=== PATIENT | female | born 1945 | race Caucasian/White ===

== ENCOUNTER 2019-11-07 18:16 | Inpatient (IN) | payer OTHER ==
[2019-11-07] MEDS ORDERED: ENOXAPARIN 40 MG/0.4 ML SQ ONE (19:17)
[2019-11-07 19:59] VITALS: BMI 24.9
--- NOTE | 2019-11-07 20:35 | RAD REPORT ---
EXAM DESCRIPTION: USCarotid Artery Bilateral11/07/2019 8:11 pm CLINICAL HISTORY: CVA COMPARISON: None FINDINGS: The velocity of the right internal carotid artery equals 100 cm/sec. The right ICA/CCA rat io 1. The velocity of the left internal carotid artery equals 166 cm/sec. The left ICA/CCA ratio 2. Mild plaque is present within the carotid arteries. Left internal carotid artery is tortuous The vertebral arteries demonstrate antegrade flow IMPRESSION: Mild plaque within the carotid arteries. Elevated velocity of the left internal carotid artery likely is secondary to it being tortuous NASCET criteria used. Mild 0-49% stenosis Moderate 50-69% stenosis Severe 70-99% stenosis
[2019-11-07] MEDS: NA CHLORIDE 0.9% 1,000 ML IV SCH (21:02)
[2019-11-08 05:21] LABS: Potassium 3.8 mmol/L (3.5-5.1)
[2019-11-08] MEDS ORDERED: POTASSIUM 25 MEQ EFFERV TAB PO ONE (06:25)
--- NOTE | 2019-11-08 08:31 | HP ---
Date of Admission: 11/07/2019 Reason For Admission: Stroke. History Of Present Illness: This is a 74-year-old very pleasant female patient who came into office yesterday with her and was diagnosed as having TIA after I interviewed and examined. Patient reported that for the past week on Wednesday, she was doing her makeup and she was reaching to strip picker something using her left hand and all of a sudden she started to have some tingling, numbness of the left hand, which radiated all the way to her left upper arm and then left side of the face and on the corner of her lip and left side of tongue was numb for a while. Entire episode lasted for about 10 minutes. She did not have any vision problem, did not have any speech problem. No headache. After these symptoms resolved, she has not had any recurrence of symptoms. She decided to go to the emergency room when symptoms started, but as her symptoms resolved within 10 minutes, she did not go to the emergency room. She came in to see me yesterday with her . After I evaluated her, I noted that there was no neurological deficit and we decided to pursue outpatient workup with what appeared to be TIA. Workup included fasting blood work that was done this morning and CAT scan of the head that was done without contrast and this was done in [facility] as yesterday patient's insurance company informed office staff that our hospital was out of network, so CAT scan was done at [facility], and today, radiologist from [place] called and informed CAT scan showed approximately 2 cm x 2.3 cm area of hypodensity in the right frontal lobe. There was no evidence of any hemorrhage, but there could be small possibility of vasogenic edema. As soon as this CAT scan report was notified by radiologist, we contacted the patient and asked her to come to office. Patient and her both came and result was discussed with them and I suggested for patient to be admitted to the hospital for further evaluation and management of this problem. Patient does not have any neurological deficit. After I saw her yesterday, we started her on aspirin 81 mg daily, lisinopril 5 mg daily, atorvastatin 40 mg daily, folic acid 1 mg daily and she has started all these medications as prescribed yesterday. Allergies: SHE IS ALLERGIC TO CODEINE CAUSING NAUSEA, VOMITING AND BACTRIM CAUSES RASH AND ITCHING. Medications: Aspirin 81 mg daily, lisinopril 5 mg daily, atorvastatin 40 mg daily, folic acid 1 mg daily. Review of Systems: MICROBIOLOGY ANALYST as mentioned above. All other systems reviewed and negative. Past Medical History: Significant for multinodular goiter, hyperlipidemia, diverticulosis, leukocytopenia. 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 Family History: Father with lung cancer and emphysema. Mother with coronary artery disease. Siblings alive and well. Social History: Negative for smoking, alcohol use. Physical Examination: Vital Signs: Upon admission today, temperature 97.3, pulse 68, respiratory rate 16, blood pressure 116/53. Height 5 feet 1 inch, weight 131 pounds. General: Awake, alert, oriented, not in distress. HEENT: Head atraumatic, normocephalic. Conjunctivae nonerythematous. Sclerae white. Mouth, no thrush or edema noted. Ears/Nose, no mass, lesion, discharge noted. Neck: Supple. No JVD, lymph nodes, bruit, thyromegaly noted. Lungs: Bilateral good equal air entry. Clear to auscultation. No rhonchi. No rales. Heart: Normal heart sounds, no murmur or gallop. Abdomen: Soft, bowel sounds normal. No guarding, rigidity, tenderness, mass, hepatosplenomegaly, distention, or bruit noted. Extremities: No leg edema. No calf tenderness. Skin: No rash, ulcer, cellulitis. Lymphatics: No lymph node enlargement in neck, supraclavicular, infraclavicular region. Neuro: No focal neurological deficit. Chest: Unremarkable. External Genitalia: Deferred. Rectal: Deferred. Laboratory Data: CAT scan of the brain done at outside hospital shows 2 cm x 2.3 cm vague area of hypodensity in the right frontal lobe with some vasogenic edema. No evidence of any hemorrhage, this was a verbal report from radiologist. Labs done this morning through [facility], WBC 3.9, hemoglobin 12.8, platelets 244. Sodium 141, potassium 4.2, chloride 104, bicarb 30, glucose 102 , BUN 20, creatinine 0.75. Liver function tests normal. Total cholesterol 231 , triglyceride 43, HDL 73, LDL 145. Impression: 1. Stroke. 2. Hyperlipidemia. 3. Multinodular goiter. 4. Diverticulosis. 5. Leukocytopenia. Plan: Admit patient to hospital for further evaluation and management of this problem. Patient is appropriate for inpatient and is expected to spend 2 midnights in the hospital. She does not have any neurological deficit. We will go ahead and order DVT prophylaxis using Lovenox. Home medications will be continued using home supply and carotid Doppler was done today after admission to the hospital shows no evidence of hemodynamically significant stenotic lesion. Tomorrow, we will get MRI of the brain done per stroke protocol. Echocardiogram will be done and we will consult neurologist. Depending on MRI results, we will discuss further plan. Details and plan of treatment discussed with the patient. JOSE/SANDRA Voice ID: [id number]
[2019-11-08] MEDS ORDERED: LISINOPRIL 5 MG PO SCH (09:00)
[2019-11-08] MEDS ORDERED: FOLIC ACID 1 MG PO SCH (09:00)
[2019-11-08] MEDS ORDERED: HOME MED 1 EA UNK (Aspirin Chewable [Aspirin Chewable*] 81 MG) PO SCH (09:00)
[2019-11-08] MEDS ORDERED: ASCORBIC ACID 250 MG PO SCH (09:00)
--- NOTE | 2019-11-08 11:21 | ECHO ---
HEIGHT: 5 ft 1 in WEIGHT: 131 lb 14.4 oz DATE OF STUDY: 11/08/[address]: Lambert Lea MD 2-DIMENSIONAL: YES M.MODE: YES DOPPLER: YES COLOR FLOW: YES TDS: NO PORTABLE: NO DEFINITY: NO BUBBLE STUDY: NO DIAGNOSIS: STROKE CARDIAC HISTORY: CATHERIZATION: NO SURGERY: NO PROSTHETIC VALVE: NO PACEMAKER: NO MEASUREMENTS (cm) DIASTOLIC (NORMALS) SYSTOLIC (NORMALS) IVSd 0.7 (0.6-1.2) LA Diam 3.4 (1.9-4.0) LVEF 69% LVIDd 4.2 (3.5-5.7) LVIDs 2.6 (2.0-3.5) %FS 38% LVPWd 0.8 (0.6-1.2) Ao Diam 2.6 (2.0-3.7) 2 DIMENSIONAL ASSESSMENT: RIGHT ATRIUM: NORMAL LEFT ATRIUM: NORMAL RIGHT VENTRICLE: NORMAL LEFT VENTRICLE: NORMAL TRICUSPID VALVE: NORMAL MITRAL VALVE: NORMAL PULMONIC VALVE: NORMAL AORTIC VALVE: NORMAL PERICARDIAL EFFUSION: NONE AORTIC ROOT: NORMAL LEFT VENTRICULAR WALL MOTION: NORMAL. DOPPLER/COLOR FLOW: MILD TRICUSPID REGURGITATION. NORMAL RIGHT VENTRICULAR SYSTOLIC PRESSURE. COMMENTS: NORMAL 2D ECHO. MILD TRICUSPID REGURGITATION. TECHNOLOGIST: RACHELLE HUGO
--- NOTE | 2019-11-08 12:22 | RAD REPORT ---
EXAM DESCRIPTION: MRI - Brain W/Wo Cont - 11/08/2019 11:52 am CLINICAL HISTORY: NUMBNESS/CVA COMPARISON: [address] TECHNIQUE: Axial, sagittal, and coronal magnetic images of the brain were obtained. 20 cc MultiHance administered intravenously FINDINGS: 3 centimeter area of heterogeneous signal is present within the right frontal lobe. It con tains areas of high and low signal on T2 weighted sequences. No enhancement is noted. On T2 weighted sequences several sulci within the right frontal lobe have low signal. The ventricles are normal in caliber. Diffusion-weighted/ ADC mapping sequences do not demonstrate evidence of an acute infarction. No abnormal enhancement within the brain is seen. An extra-axial fluid collection is not noted. Fluid within the sinuses/mastoids is not seen IMPRESSION: 3 centimeter area of heterogeneous signal within the right frontal lobe most likely repr esenting an old bleed Low signal on T2 weighted sequences within several sulci within the right frontal lobe is of uncertai n significance. . It is recommended that the patient have a CT scan of the head with and without contrast for further e valuation
--- NOTE | 2019-11-08 12:26 | RAD REPORT ---
EXAM DESCRIPTION: MRI - MRA Neck W/Wo Cont - 11/08/2019 11:52 am CLINICAL HISTORY: Numbness/CVA COMPARISON: None. TECHNIQUE: Magnetic resonance angiogram of the neck was performed. 19 cc MultiHance was administered intravenously. 3D MIPS reconstruction performed FINDINGS: The common carotid, internal carotid and external carotid arteries do not demonstrate a si gnificant stenosis. An aneurysm is not seen. Mild plaque is present within the carotid arteries The vertebral arteries are codominant without visualization of an abnormality. IMPRESSION: Mild plaque within the carotid arteries not considered significant NASCET criteria used. Mild 0-49% stenosis Moderate 50-69% stenosis Severe 70-99% stenosis
--- NOTE | 2019-11-08 12:31 | RAD REPORT ---
EXAM DESCRIPTION: MRI - MRA Head Wo Cont - 11/08/2019 11:53 am CLINICAL HISTORY: Numbness/CVA COMPARISON: None. TECHNIQUE: Magnetic resonance angiogram was performed. 3D MIPS reconstruction performed FINDINGS: The anterior cerebral, middle cerebral, posterior cerebral, distal internal carotid and ba silar arteries do not demonstrate a significant stenosis. An aneurysm is not displayed. IMPRESSION: Unremarkable MRA brain.
--- NOTE | 2019-11-08 13:12 | RAD REPORT ---
EXAM DESCRIPTION: CT - Head Brain W/Wo Con - 11/08/2019 12:52 pm CLINICAL HISTORY: CVA COMPARISON: MRI brain on the same date TECHNIQUE: Computed axial tomography of the head was obtained. Unenhanced and enhanced images obtain ed. 50 cc Isovue-[address] scans are performed using dose optimization technique as appropriate and may include automated exposure control or mA/KV adjustment according to patient size. FINDINGS: 3 centimeter low density area right frontal lobe. Right frontal lobe sulci are not well vi sualized. The ventricles are normal in caliber. No extra-axial fluid collection is noted. No abnormal enhancement seen Fluid within the sinuses/ mastoids is not seen. IMPRESSION: Given the CT/MRI findings the patient most likely has had either an old hemorrhagic infa rct or old bleed within the right frontal lobe. There also appears to be a small old subarachnoid com ponent
--- NOTE | 2019-11-08 15:48 | EKG ---
Test Date: 2019-11-08 Test Time: 12:34:21 Upholsterer Apprentice: PERLA MEASUREMENT RESULTS: Intervals: Rate: 60 ND: 152 QRSD: 78 QT: 432 QTc: 432 [place]: P: 70 ND: 152 QRS: 77 T: 87 INTERPRETIVE STATEMENTS: Normal sinus rhythm Normal ECG Compared to ECG 05/22/2006 07:23:00 Ventricular premature complex(es) no longer present Electronically Signed On 11-08-19 15:48:21 HEALTHCARE MANAGEMENT by Moses Puga
[2019-11-08] MEDS: NA CHLORIDE 0.9% 1,000 ML IV SCH (16:00)
[2019-11-08] MEDS ORDERED: ENOXAPARIN 40 MG/0.4 ML SQ SCH (17:00)
[2019-11-08] MEDS ORDERED: ATORVASTATIN CALCIUM 40 MG PO SCH (21:00)
[2019-11-08 21:33] VITALS: BP 111/47; TEMP 97
[2019-11-08 22:50] VITALS: O2SAT 96
--- NOTE | 2019-11-09 00:01 | PN ---
Date of Progress Note: 11/08/2019 Subjective: Patient was seen this morning for followup. She was lying in bed not in distress. Her was with her at bedside. No new complaints or problems reported by her. No neurological com plaints. Objective: Vital Signs: Reviewed. HEENT: Unremarkable. Lungs: Clear to auscultation. Heart: Sounds normal. Abdomen: Soft. Bowel sounds normal. No guarding, rigidity, tenderness, or distention. Extremities: No leg edema. Neurological: No focal neurological deficits. Laboratory Data: MRI of the brain done today and radiologist called me with the results and he recom mended CAT scan of the brain with contrast, which was also done stat and radiologist called me with t hat results as well and I have communicated those results to her and her . Impression: 1.Stroke. 2.Hyperlipidemia. Plan: After MRI and CAT scan result became available, we are concerned about approximately 3 cm area of abnormality in the right frontal lobe and according to radiologist, this does not appear to be an y brain tumor, but what it appears to be is likely old stroke with some evidence of old blood in it a nd it does not appear few days old as if it might have happened last week, but it appears a few weeks old as best as the radiologist can explain it to me. There is also some subdural component with thi s and I did communicate with our neurologist and recommendation now is the patient to go to [facility] or higher level of care, as she may need cerebral angiogram and further intervention depending on wha t further testing will reveal and we are not able to provide that care at our facility. All these de tails were discussed with the patient and her and transfer process was initiated. I did comm unicate with hospitalist and neurologist at [facility] in [place] and the patient was accepted by physician and hospital and we are waiting for now bed availability. As soon as bed becom es available, patient will be transferred via ground ambulance and the patient is medically stable fo r transfer. Details were discussed with the patient and her . Soon after I got this MRI resu lt and CAT scan result, a nurse was informed to discontinue aspirin and Lovenox. The patient took as pirin on Wednesday and Wednesday, which is yesterday and day before yesterday, and has not received any as pirin today. She took 1 dose of Lovenox yesterday per order and has not taken any Lovenox today. JOSE/MODL Voice ID: [id number] Report ID: [id number]
--- NOTE | 2019-11-10 00:29 | DS ---
Date of Discharge: 11/08/2019 Disposition: Transfer to [facility] via ground ambulance. Discharge Diagnoses: 1.Stroke. 2.Hypertension. 3.Hyperlipidemia. Discharge Medications: Continue current medications. Physical Examination: See copy of today's progress note for details. Hospital Course: This is a 74-year-old very pleasant female patient, admitted to the hospital with s troke problem. Please see dictated H and P for more information. After patient was evaluated at the office and CAT scan results discussed, she was admitted to the hospital. She did not have any neuro logical deficit at all. Today, on day of discharge, she had MRI done per stroke protocol and as per recommendation from the radiologist she also had a CAT scan of the head and brain done with contrast. All these results were reviewed with the patient and the patient's and also I have discusse d details with our neurologist and it was recommended that we need to go ahead and send her to [facility] for higher level of care considering abnormality noted on the CAT scan and MRI. I did talk to neur ologist and hospitalist at [facility] after the patient was accepted and once arrangements co mpleted, she was transferred via ground ambulance in stable condition. JOSE/MODL Voice ID: [id number] Report ID: [id number]
== END 2019-11-08 22:46 | disposition short-term general hospital (02) | DRG 66 ==
LOC: 4TH 18:16
PROVIDERS: ADMIT Internal Medicine; ATTEND Internal Medicine
DX: I63.9 Cerebral infarction, unspecified (principal); I10 Essential (primary) hypertension; E78.5 Hyperlipidemia, unspecified; E04.2 Nontoxic multinodular goiter; K57.90 Diverticulosis of intestine, part unspecified, without perforation or abscess without bleeding; D72.819 Decreased white blood cell count, unspecified
CPT/HCPCS: 36415; 70544; 70549; 70553; 80048; 93005; 93306; 93880; A9577; J1650; J7030

== ENCOUNTER 2021-05-13 08:38 | Inpatient (IN) | payer OTHER ==
--- OUTSIDE RECORDS SUMMARY | 2021-05-13 08:43 | XMS REPORT | Continuity of Care Document ---
:1945 Author Organization [facility] t Address [address] [place] [place] [address] Care Team Providers Name Role Phone Chely Lea MD Primary Care Physician Gigi Pierce Attending Clinician Natividad CARVALHO Attending Clinician Kojo De La Fuente RN Attending Clinician Unavailable Dov YEE Attending Clinician Unavailable RONNIE SUAREZ Attending Clinician Unavailable Mendy ROSE Admitting Clinician Unavailable Payers Payer Name Policy Type Policy Number Effective Date Expiration Date S ource Problems Condition Condition Condition Status Onset Resolution Last Treating Co mments Source Name Details Category Date Date Treatment Clinician Date TIA TIA Disease Active [facility] (transient [facility]-05 Gianna kes - ischemic ischemic 00:00: Medica l attack) attack) 00 Center Thyroid Thyroid Disease Active 2015-09 [facility] nodule nodule 2-07 st 00:00: Hospita 00 l Cerebral Problem Active 2021-02-28 Mem oria hemorrhage 02:04:38 l (disorder) Cerebral He rmann hemorrhage (disorder) Active Problem 02/28/2021 [facility] Hemorrhage Problem Active 2021-02-28 M emoria into 02:04:38 l subarachno Tee n id space Hemorrhage of into neuraxis subarachno (disorder) id space of neuraxis (disorder) Active Problem 02/28/2021 [facility] Allergies, Adverse Reactions, Alerts Allergy Allergy Status Severity Reaction(s) Onset Inactive Treating Comm ents Source Name Type Date Date Clinician Sulfamet Propensi Active Rash [facility] -[facility] adverse 00:[facility]: Medical oprim reaction 00 Center s Codeine Propensi Active Nausea And [facility] Vomiting 3[facility]05 [facility] - adverse 00:[facility]: Medical reaction 00 Center s Sulfamet Propensi Active 2016-09 [facility] i hoxazole ty to 10-04 [facility] -[facility] adverse 00:00: Hospita oprim reaction 00 l s to drug Codeine Propensi Active 2015-09 [facility] ty to 10-13 st adverse 00:00: Hospita reaction 00 l s to drug codeine codeine Active [facility] [place] Bactrim Bactrim Active [facility] [place] Family History Family Member Diagnosis Comments Start Date Stop Date Source Natural father COPD [facility] Natural father Liver disease [facility] Natural mother Heart disease [facility] Natural mother Mental illness [facility] Social History Social Habit Start Date Stop Date Quantity Comments Source History SDOH [facility] Binge Medical [facility] History [facility] Std Drinks [facility] Tobacco use and 2020-07-19 2020-07-19 Never used [facility] exposure 00:00:00 00:00:00 Hospital Alcohol intake 2019-11-09 2019-11-09 Current [facility] - 00:00:00 00:00:00 non-drinker of Medical Ce nter alcohol (finding) History SDOH 2019-11-09 2019-11-[address] [facility] - Alcohol Frequency 00:00:00 00:00:00 [facility] Sex Assigned At [birth year] [facility] 00:[facility]:00 00:00:00 Hospital Smoking Status Start Date Stop Date Source Never smoker [facility] Medications Ordered Filled Start Stop Current Ordering Indication Dosage Frequency Signature Comments Components Source Medication Medication Date Date Medication? Clinician (SIG) Name Name Crestor 2019-09 Yes PO, Daily, Stefan eunice 2-22 0 l 20:46: Refill(s) Alex 00 rosuvastati 2019-09 Yes 5mg QD Take 5 mg M ethodi n (CRESTOR) [address] 5 mg tablet 16:29: daily. Hosp shahid 50 l hyoscyamine 2019-09 Yes Take by Met hodi sulfate 1-[address] 0.125 mg 16:29: needed. Hospit a tablet,disi 50 l ntegrating guaifenesin 2019-09 Yes Take by Met hodi (MUCINEX 1-[address] ORAL) 16:29: needed. Hospita 50 l vitamin B 2019- Yes QD Take by Metho di complex (B 1-[address] COMPLEX 16:29: daily. Hospita ORAL) 50 l ascorbic 2019- Yes 250mg Q.5D Take 250 Meth rosalie acid 1-[address] (VITAMIN C 16:29: mouth 2 Hosp shahid ORAL) 50 (two) l times a day. cyanocobala 2019- Yes 500ug QD Take 500 M ethodi min 500 MCG 1-[address] tablet 18:10: mouth Hospita 09 daily. l cholecalcif 2019- Yes 1000U QD Take 1,000 Methodi mckenna, 1-[address] vitamin D3, 18:10: mouth Hospi ta (VITAMIN 09 daily. l D3) 1,000 unit capsule atorvastati 2019-0 Yes 40 mg, PO, Memoria n -29 Daily, 0 l 14:41: Refill(s) [place] 00 Folic Acid 2019-0 Yes 1 mg, PO, Me moria - Daily, 0 l 14:41: Refill(s) azelastine 2019-0 Yes 2 sprays, Me moria - NASAL, l 14:41: BID, 0 Laex 00 Refill(s) fluticasone 2019-0 Yes = 1 spray, Memoria propionate - NASAL, l 14:41: BID, 0 [place] 00 Refill(s) Hyoscyamine 2020-0 Yes 0.125 mg, M emoria 5-29 PO, PRN, 0 l 14:41: Refill(s) folic acid 2019-0 Yes [facility] (FOLVITE) 1 3-11 st MG tablet 00:00: Hospita 00 l atorvastati 2020-0 2020- No Metho di n (LIPITOR) 3-11 11-10 st 40 MG 00:00: 00:00 Hospita tablet 00 :00 l atorvastati 2019-0 Yes 40mg QD Take [address] [facility] (LIPITOR) 3-06 by mouth [facility] s - 40 MG 13:08: daily. Medical tablet 05 Center folic acid Yes 1mg QD Take [address] (FOLVITE) 1 11-09 by mouth Luke s - MG tablet 13:08: daily. Medica l 05 Center azelastine Yes [facility] (ASTELIN) - st 137 mcg 00:00: Hospita (0.1 %) 00 l nasal spray fluticasone Yes Method i propionate 11-03 st (FLONASE) 00:00: Hospita 50 00 l mcg/actuati on nasal spray turmeric, 2016-09 Yes 09/13 tsp Metho di bulk, 95 % 10-[address] powder 00:00: Hospita 00 l omega-3 2016-09 Yes 1200 mg [facility] fatty 10-[address] acids-fish 00:00: Hospita oil (FISH 00 l OIL) 300-1,000 mg capsule Lactobacill 2016-09 Yes 1 a day Met hodi us 10-04 st acidophilus 00:00: Hospit a (PROBIOTIC) 00 l 10 billion cell capsule cranberry 2016-09 Yes 1 a day Metho di 500 mg 10-04 st capsule 00:00: Hospita 00 l lecithin 2016-09 Yes 380 mg a Metho di 518 mg - day st capsule 00:00: Hospita 00 l magnesium 2016-09 Yes 200 mg a Meth rosalie citrate 100 10-[address] mg tablet 00:00: Hospita 00 l vit 2016-09 Yes 1 a day [facility] C,E-Zn-kurt 10-04 st r-lutein-ze 00:00: Hospit a axan 00 l (PRESERVISI ON AREDS 2) 250-200-40- 1 mg-unit-mg- mg capsule Vital Signs Vital Name Observation Time Observation Value Comments Source Systolic blood 2020-07-19 21:39:00 161 mm[Hg] [facility] Hospital pressure Diastolic blood 2020-07-19 21:39:00 65 mm[Hg] [facility] pressure Heart rate 2020-07-19 21:39:00 63 /min [facility] Respiratory rate 2020-07-19 21:39:00 16 /min [facility] Oxygen saturation in 2020-07-19 21:39:00 98 /min [facility] Arterial blood by Pulse oximetry Body height 2020-07-17 16:29:00 154.9 cm [facility] Body weight 2020-07-17 16:29:00 57.063 kg [facility] BMI 2020-07-17 16:29:00 23.77 kg/m2 [facility] Systolic (mm Hg) 2020-05-31 14:49:00 Stefan rial Alex Diastolic (mm Hg) 2020-05-31 14:49:00 Mem orial [place] Heart Rate 2020-05-31 14:49:00 [facility] [place] Respitory Rate 2020-05-31 14:49:00 [facility] al [place] Height 2020-05-31 14:49:00 152.4 cm [facility] Weight 2020-05-31 14:49:00 [facility] [place] BMI Calculated 2020-05-31 14:49:00 [facility] [place] Systolic (mm Hg) 2020-02-29 14:20:00 Stefan rial [place] Diastolic (mm Hg) 2020-02-29 14:20:00 Mem orial [place] Heart Rate 2020-02-29 14:20:00 [facility] Respitory Rate 2020-02-29 14:20:00 [facility] [place] Temperature Oral (F) 2020-02-29 14:20:00 97.2 F [facility] [place] Height 2020-02-29 14:20:00 154.94 cm [facility] Weight 2020-02-29 14:20:00 [facility] [place] BMI Calculated 2020-02-29 14:20:00 [facility] [place] Weight 2020-02-02 14:35:00 [facility] [place] BMI Calculated 2020-02-02 14:35:00 Memori al Alex Systolic (mm Hg) 2020-02-02 14:35:00 Stefan rial Alex Diastolic (mm Hg) 2020-02-02 14:35:00 Mem orial Alex Heart Rate 2020-02-02 14:35:00 [facility] [place] Respitory Rate 2020-02-02 14:35:00 [facility] [place] Temperature Oral (F) 2020-02-02 14:35:00 97.6 F [facility] Height 2020-02-02 14:35:00 154.94 cm [facility] Procedures Procedure Date / Time Performed Performing Clinician Sourc e US THYROID BIOPSY FNA 2020-07-19 21:54:38 Robert Potts [facility] CYTOLOGY 2020-07-18 20:45:00 Robert Potts [facility] (NON-GYNECOLOGICAL) REQUEST US THYROID 2020-07-09 16:37:09 Robert Potts [facility] Plan of Care Planned Activity Planned Date Details Comments Source Future Scheduled 2020-05-07 INFLUENZA VACCINE (#1) [facility]00 [code = INFLUENZA Medical Ce nter VACCINE (#1)] Future Scheduled 2019-09-06 Medicare IPPE (WELCOME [facility] 00:[facility]00 TO MEDICARE) [code = Medical Center Medicare IPPE (WELCOME TO MEDICARE)] Future Scheduled 2012 PNEUMOCOCCAL 65+ [facility] - Test 00:00:00 (1 of 1 - Medical Center [id number] PCV13) [code = PNEUMOCOCCAL 65+ YRS (1 of 1 - [id number] PCV13)] Future Scheduled [address] [facility] malignant neoplasm of Med[facility] Center breast (procedure) [code = 688951011] Future Scheduled [address] [facility] malignant neoplasm of Medica [facility] Center colon (procedure) [code = 669330839] Future Scheduled COVID-19 [facility]ACCINE (1) [facility] [code = COVID-19 VACCINE (1)] Future Scheduled [facility] (procedure) [code = 618327464] Future Scheduled BREAST CANCER [facility] Test SCREENING [code = BREAST CANCER SCREENING] Future Scheduled SHINGLES VACCINES (#1) [facility] Test [code = SHINGLES VACCINES (#1)] Future Scheduled 65+ [facility]OCOCCAL [facility] Test VACCINE (1 of 1 - PPSV23) [code = 65+ PNEUMOCOCCAL VACCINE (1 of 1 - PPSV23)] Future Scheduled INFLUENZA VACCINE [facility] Test [code = INFLUENZA VACCINE] Future Scheduled COLONOSCOPY SCREENING [facility] [code = COLONOSCOPY SCREENING] Encounters Start End Encounter Admission Attending Care Care Encounter Source Date/Time Date/Time Type Type Clinicians Facility Department ID 2021-02-25 2021-02-26 Outpatient nullFlavo MNA [id number] Memoria 18:45:00 04:59:59 r Neurology 13 l Valdez Johnson 2021-02-25 2021-02-25 [id number] 13:45:00 23:59:59 Jose 13 Gigi 2021-02-25 2021-02-25 Outpatient MHIE MHIE [id number] Memoria 13:45:00 13:45:00 13 cheyenne Johnson 2020-08-27 2020-08-28 Outpatient nullFlavo MNA [id number] Memoria 20:45:00 05:59:59 r Neurology 12 l Valdez Johnson 2020-08-27 2020-08-27 Outpatient ANDRE PierceSCHER [facility]CHER [id number] 14:45:00 23:59:59 Jose 12 Gigi 2020-08-27 2020-08-27 Outpatient MHIE MHIE [id number] Memoria 14:45:00 14:45:00 12 [facility] 2020-07-19 2020-07-19 [facility] 1.2.840.1 [id number] Methodi 14:08:11 23:59:00 Encounter Jawairia 85899.1.1 221 s t 3.430.2.7 Hospit a .3.274532 l .8 2020-07-19 2020-07-19 Travel 1.2.840.1 1.2.836.551 [id number] Methodi 00:00:00 00:00:[address] 3.430.2.7 0.2.7.3.698 Ho spita .3.462040 084.8 l .8 2020-07-19 2020-07-19 Outpatient [facility] [id number] [place] 00:00:00 00:00:00 [address] 2020-07-18 2020-07-18 Telephone Del[place] 1.2.840.1 [id number] Methodi 00:00:00 00:00:00 Sudhakar, 32939.1.[address] Shannan 3.430.2.7 Hospit a .3.357729 l .8 2020-07-17 2020-07-17 Office Natividad, 1.2.840.1 [id number] Methodi 10:21:39 16:10:54 Visit Jawairia [address]1054.1.[address] 3.430.2.7 Hospit a .3.996147 l .8 2020-07-17 2020-07-17 Documentat Dov, 1.2.840.1 [id number] Methodi 00:00:00 00:00:00 ion [place] 20152.1.[address] 3.430.2.7 Hospit a .3.340168 l .8 2020-07-17 2020-07-17 Travel 1.2.840.1 1.2.157.820 [id number] Methodi 00:00:00 00:00:[address] 3.430.2.7 0.2.7.3.698 Ho spita .3.001954 084.8 l .8 2020-07-17 2020-07-17 Outpatient [facility] [id number] [place] 00:00:00 00:00:[address] JA[address] 2020-07-09 2020-07-09 Travel 1.2.840.1 1.2.770.013 [id number] Methodi 00:00:00 00:00:[address] 3.430.2.7 0.2.7.3.698 Ho spita .3.714126 084.8 l .8 2020-07-09 2020-07-09 Outpatient [facility] [id number] [place] 00:00:00 00:00:00 JAWAIRIA [address] 2020-05-31 2020-06-01 Outpatient nullFlavo MNA [id number] Memoria 14:45:00 04:59:59 r Neurology 11 l Tecumseh Alex 2020-05-31 2020-05-31 [facility] [id number] 09:45:00 23:59:59 Jose 11 Gigi 2020-05-31 2020-05-31 Outpatient MHIE MHIE [id number] Memoria 09:45:00 09:45:00 11 l Alex 2020-02-29 2020-03-01 Outpatient nullFlavo MNA [id number] Memoria 14:30:00 04:59:59 r Neurology 09 l Tecumseh Alex 2020-02-29 2020-02-29 [facility] [id number] 09:30:00 23:59:59 Jose 09 Gigi 2020-02-29 2020-02-29 Outpatient MHIE MHIE [id number] Memoria 09:30:00 09:30:00 09 cheyenne Alex 2020-02-08 2020-02-09 Outpatient nullFlavo MNA [id number] Memoria 18:00:00 04:59:59 r Neurology 10 l Valdez Johnson 2020-02-08 2020-02-08 Outpatient CAREN Pierce [id number] [id number] 13:00:00 23:59:59 Jose 10 Gigi 2020-02-08 2020-02-08 Outpatient MHIE MHIE [id number] Memoria 13:00:00 13:00:00 10 cheyenne [place] 2020-02-02 2020-02-03 Outpatient nullFlavo MNA [id number] Memoria 14:45:00 04:59:59 r Neurology 08 l Valdez [place] 2020-02-02 2020-02-02 Outpatient CAREN Pierce BEENASCHFABIENNE [id number] 09:45:00 23:59:59 Jose 08 Gigi 2020-02-02 2020-02-02 Outpatient MHIE MHIE [id number] Memoria 09:45:00 09:45:00 08 cheyenne Johnson 2019-12-06 2019-12-06 Outpatient NATIVIDAD [facility] [id number] [place] 00:00:00 00:00:[address] Results Test Description Test Time Test Comments Results Result Comments Source Cytology (non-gynecological) request 2020-07-22 22:11:54 Test Item Value Reference Range Interpretation Comme nts Case number (test code = [id number]) [id number] Cytology (non-gynecological) report (test See link below for PDF La b Report code = 1178) Result status (test code = 9487314) This is Final Report for [id number] [facility] [id number] 22:09:32EXAMINATION: US THYROID BIOPSY FNA CLINICAL HISTORY: E04.1 Nontoxic single thyroid nodule, thyroidnodule COMPARISON: Ultrasound dated 07/09/2020 NODULES BIOPSIED:Right 4 cm thyroid nodule The procedure was discussed with the patient and verbal consent was obtained. The nodule was localized using ultrasonography. A site for needle entry was selected and the skin was prepped and draped in the usual sterile fashion. After local administration of 1% buffered lidocaine, serial 25- gauge fine-needle aspirations were obtained using ultrasound guidance. The specimens were reviewed with the pathologist and were deemed adequate. The patient tolerated the procedure without difficulty and was discharged home in satisfactory condition. The patient has been instructed to follow-up with the ordering physician for the results of the biopsy. EBL: None. IMPRESSION: 1.Successful ultrasound-guided thyroid biopsy. [facility], Radiology Results Incoming - 07/19/2020 4:12 PM CSTFormatting of this note mightbe different from the original.EXAMINATION: US THYROID BIOPSY FNACLINICAL HISTORY: E04.1 Nontoxic single thyroid nodule, thyroid nodule COMPARISON: Ultrasound dated 07/09/2020NODULES BIOPSIED:Right 4 cm thyroid noduleThe procedure was discussed with the patient and verbal consent was obtained. The nodule was localized using ultrasonography. A site for needle entry was selected and the skin was prepped and draped in the usual sterile fashion. After local administration of 1% buffered lidocaine, serial 25-gauge fine-needle aspirations were obtained using ultrasound guidance. The specimens were reviewed with the pathologist and were deemed adequate. The patient tolerated the procedure without difficulty and was discharged home in satisfactory condition. The patient has been instructed to follow-up with the ordering physician for the results of the biopsy.EBL: None.IMPRESSION:1.Successful ultrasound-guided thyroid biopsy.[facility] MR, MRA, BRAIN, WITHOUT [id number] 02:48:00Please obtain MRV with contrast. Arterial view already completed at [facility] EXAM: MR, MRA, BRAIN, WITHOUT CONTRAST CLINICAL INDICATION: Frontal hemorrhage. TECHNIQUE: 3D lksg-lm-tntnat MRA and MRV of the head with maximum intensity projections (MIPs). COMPARISON: 11/09/2019 MRI. FINDINGS: Anterior Circulation:Right intracranial internal carotid artery (ICA): NormalRight anterior cerebral artery (JOSE): NormalRight middle cerebral artery ( MCA): Normal Left intracranial internal carotid artery (ICA): NormalLeft anterior cerebral artery (JOES): NormalLeft middle cerebral artery (MCA): Normal Anterior communicating artery (AComm): PresentPosterior communicating arteries (PComm): Not well-visualized bilaterally. Posterior Circulation:Right posterior cerebral artery (CASING WRINGER OPERATOR): NormalLeft posterior cerebral artery (CASING WRINGER OPERATOR): Normal Right vertebral artery (VA): NormalLeft vertebral artery (VA): NormalBasilar artery (BA): Normal Major Dural Venous Sinuses and Cortical Veins: Normal flow related signal to include the bilateral transverse sinuses, sigmoid sinuses, partially imaged internal jugular veins, sagittal sinus, superior sagittal sinus, and co rtical veins. Cavernous sinuses are unremarkable. IMPRESSION:Unremarkable MRA and MRV of the head. No etiology identified for prior frontal hemorrhage. Signed: Bernadette Mckeon MDReport Verified Date/Time: 11/10/2019 02:48:14 MR, BRAIN, WITHOUT [id number] 02:26:00FINAL REPORT Exam: MRI brain without contrast. Comparison: Outside brain MRI11/08/2019. Clinical indication: Parenchymal hemorrhage, follow-upf/u on bleed Technique: Multiplanar multi sequential MR imaging of the brain was performed without the administration of intravenous contrast. Findings:There is susceptibility artifact in right frontal lobe sulci and in the left parasagittal frontal lobe sulcus consistent with remote subarachnoid hemorrhage. There is a small area of encephalomalacia in the right anterior frontal lobe with susceptibility artifact compatible with remotehemorrhage/hematoma. There are mild white matter microvascular ischemic changes. There is no acute intracranial hemorrhage. There is no intracranial mass, mass effect, extra-axial collection, hydroceph alus or herniation. There is no restricted diffusion to suggest an acute infarct. The skull base flow-voids are seen in keeping with their patency. The visualized paranasal sinuses and mastoid air cells are clear. The orbits, sella and parasellar regions are unremarkable. The craniocervical junction is normal. Impression:Remote hematoma in the right anterior frontal lobe. Remote bilateral frontal subarachnoid hemorrhage.Mild white matter microvascular ischemic changes.No acute intracranial hemorrhage, acute infarct or mass effect. Signed: Steve Chiang MDReport Verified Date/Time: 11/10/201902:26:10 EEG AWAKE AND [id number] 15:31:00Reason for exam:->r/o seizuresDate(s) of EE11/09/2019 DATE OF REPORT: 11/09/2019ACC: [id number] Number: [id number] Location: Inpatient RoomStart time: 11/09/2019 13:19Stop time: 11/09/2019 13:40ICD-10: R56.9 CPT Code: 36481 HISTORY: 74 y.o. female who was transferred after being found to have right frontal lobe lesion. MEDICATIONS THAT COULD AFFECT EEG: No anti-seizure medications. TECHNICAL SUMMARY: This is a digital video-EEG recorded with 32 input channels reviewed with bipolar and referential montages using the modified combinatorial system nomenclature. DESCRIPTION OF RECORD: During the maximally alert state a 10.5-11.5 Hz posterior dominant rhythm was seen that was symmetric, reactive to eye opening and well regulated. More anteriorly, low voltage frontocentral beta predominated. There is continuous right frontal (Fp2>F8) 2-4 Hz slowing with superimposed faster frequencies. Drowsiness was characterized by decreased eye blinks, alpha attenuation and increased frontocentral theta. Stage 2 sleep wasnot reached. SIGNIFICANT VIDEO EVENTS: None SIGNIFICANT ELECTROCARDIOGRAM EVENTS: None HV: Hyperventilation was not performed. PHOTIC STIMULATION: Photic stimulation was done from 1-33 Hz; symmetric photic driving was seen; photoparoxysmal responses were absent. IMPRESSION: Abnormal Awake and Drowsy EEG 1) Continuous, focal 2-4 Hz slowing, right frontal (Fp2>>F8) head region. CLINICAL CORRELATION: Continuous focal slowing is suggestive of underlying cerebral lesion involving theright frontal head region. An EEG without epileptiform discharges does not exclude the possibility of epilepsy. If the clinical suspicion of epilepsy remains, consider additional EEG recordings. Mark Wayne MDNeurophysiology Fellow Mady Dahl MD Attending Neurophysiologist [facility] RPR 2019-11-09 11:53:00 Test Item Value Reference Range Interpretation Comments RPR SCREEN (BEAKER) (test code = Nonreactive Nonreactive 420) HEMOGLOBIN [id number] 09:49:00 Test Item Value Reference Range Interpretation Comments HEMOGLOBIN A1C (BEAKER) (test code = 5.9 % 4.3-6.1 368) TSH/FREE T4 IF [id number] 03:41:00 Test Item Value Reference Range Interpretation Comments THYROID STIMULATING HORMONE 2.67 uIU/mL 0.35-4.94 (BEAKER) (test code = 772) A P Supervisor ID Erick RAMON [id number] 03:41:00 Test Item Value Reference Range Interpretation Comments HOMOCYSTEINE (BEAKER) (test code = 7.9 umol/L 5.1-15.4 642) A P Supervisor ID Erick RAMON WLIPID [id number] 03:25:00 Test Item Value Reference Range Interpretation Comments TRIGLYCERIDES (BEAKER) (test code = 34 mg/dL 540) CHOLESTEROL (BEAKER) (test code = 209 mg/dL 631) HDL CHOLESTEROL (BEAKER) (test code 62 mg/dL = 976) LDL CHOLESTEROL CALCULATED (BEAKER) 140 mg/dL (test code = 633) Triglyceride Reference Range: Low Risk <150 Borderline 150-199 High Risk 200-499 Very High Risk >=500Cholesterol Reference Range: Low Risk <200 Borderline 200-239 High Risk >240HDL Cholesterol Reference Range: Low Risk >=60 High Risk <40LDL Cholesterol Reference Range: Optimal <100 Near Optimal 100-129 Borderline 130-159 High 160-189 Very High >=190 A P Supervisor ID Erick RAMONWBASIC METABOLIC [id number] 03:25:00 Test Item Value Reference Range Interpretation Comments SODIUM (BEAKER) 142 meq/L 136-145 (test code = 381) POTASSIUM (BEAKER) 4.2 meq/L 3.5-5.1 (test code = 379) CHLORIDE (BEAKER) 110 meq/L 98-107 H (test code = 382) CO2 (BEAKER) (test 23 meq/L 22-29 code = 355) BLOOD UREA NITROGEN 19 mg/dL 7-21 (BEAKER) (test code = 354) CREATININE (BEAKER) 0.72 mg/dL 0.57-1.25 (test code = 358) GLUCOSE RANDOM 101 mg/dL 70-105 (BEAKER) (test code = 652) CALCIUM (BEAKER) 9.1 mg/dL 8.4-10.2 (test code = 697) EGFR (BEAKER) (test 80 mL/min/1.73 ESTIMA KAREN GFR IS code = 1092) sq m NOT ACCURATE CREATININE CLEARANCE IN PREDICTING GLOMERULAR FILTRATION RATE . ESTIMATED GFR I S NOT APPLICABLE FOR DIALYSIS PATIEN TS. A P Supervisor ID - TRISTEN WHEPATIC FUNCTION [id number] 03:25:00 Test Item Value Reference Range Interpretation Comments TOTAL PROTEIN (BEAKER) (test code = 6.6 gm/dL 6.0-8.3 770) ALBUMIN (BEAKER) (test code = 1145) 3.8 g/dL 3.5-5.0 BILIRUBIN TOTAL (BEAKER) (test code 0.3 mg/dL 0.2-1.2 = 377) BILIRUBIN DIRECT (BEAKER) (test 0.1 mg/dL 0.1-0.5 code = 706) ALKALINE PHOSPHATASE (BEAKER) (test 44 U/L 40-150 code = 346) AST (SGOT) (BEAKER) (test code = 21 U/L 5-34 353) ALT (SGPT) (BEAKER) (test code = 14 U/L 6-55 347) A P Supervisor ID - TRISTEN WPROTHROMBIN [id number] 03:20:00 Test Item Value Reference Range Interpretation Comments PROTIME (BEAKER) (test code = 13.6 seconds 11.9-14.2 759) INR (BEAKER) (test code = 370) 1.1 <=5.9 Effective 02/01/2019: PT Reference Range ChangeNew: 11.9-14.2 Previous: 11.7- 14.7RECOMMENDED COUMADIN/WARFARIN INR THERAPY RANGESSTANDARD DOSE: 2.0-3.0 Includes: PROPHYLAXIS for venous thrombosis, systemic embolization; TREATMENT for venous thrombosis and/or pulmonary embolus.HIGH RISK: Target INR is2.5-3.5 for patients wiht mechanical heart valves.[id number] 03:20:00 Test Item Value Reference Range Interpretation Comments PARTIAL THROMBOPLASTIN TIME 29.2 seconds 22.5-36.0 (BEAKER) (test code = 760) CBC W/PLT COUNT & AUTO [id number] 03:05:00 Test Item Value Reference Range Interpretation Comments WHITE BLOOD CELL COUNT (BEAKER) 4.8 K/ L 3.5-10.5 (test code = 775) RED BLOOD CELL COUNT (BEAKER) 3.97 M/ L 3.93-5.22 (test code = 761) HEMOGLOBIN (BEAKER) (test code = 12.5 GM/DL 11.2-15.7 410) HEMATOCRIT (BEAKER) (test code = 39.2 % 34.1-44.9 411) MEAN CORPUSCULAR VOLUME (BEAKER) 98.7 fL 79.4-94.8 H (test code = 753) MEAN CORPUSCULAR HEMOGLOBIN 31.5 pg 25.6-32.2 (BEAKER) (test code = 751) MEAN CORPUSCULAR HEMOGLOBIN CONC 31.9 GM/DL 32.2-35.5 L (BEAKER) (test code = 752) RED CELL DISTRIBUTION WIDTH 12.1 % 11.7-14.4 (BEAKER) (test code = 412) PLATELET COUNT (BEAKER) (test 226 K/CU MM 150-450 code = 756) MEAN PLATELET VOLUME (BEAKER) 10.5 fL 9.4-12.3 (test code = 754) NUCLEATED RED BLOOD CELLS 0 /100 WBC 0-0 (BEAKER) (test code = 413) NEUTROPHILS RELATIVE PERCENT 55 % (BEAKER) (test code = 429) LYMPHOCYTES RELATIVE PERCENT 33 % (BEAKER) (test code = 430) MONOCYTES RELATIVE PERCENT 8 % (BEAKER) (test code = 431) EOSINOPHILS RELATIVE PERCENT 3 % (BEAKER) (test code = 432) BASOPHILS RELATIVE PERCENT 1 % (BEAKER) (test code = 437) NEUTROPHILS ABSOLUTE COUNT 2.64 K/ L 1.56-6.13 (BEAKER) (test code = 670) LYMPHOCYTES ABSOLUTE COUNT 1.61 K/ L 1.18-3.74 (BEAKER) (test code = 414) MONOCYTES ABSOLUTE COUNT (BEAKER) 0.40 K/ L 0.24-0.36 H (test code = 415) EOSINOPHILS ABSOLUTE COUNT 0.13 K/ L 0.04-0.36 (BEAKER) (test code = 416) BASOPHILS ABSOLUTE COUNT (BEAKER) 0.03 K/ L 0.01-0.08 (test code = 417) IMMATURE GRANULOCYTES-RELATIVE 0 % 0-1 PERCENT (BEAKER) (test code = 2807)
--- NOTE | 2021-05-13 10:09 | RAD REPORT ---
EXAM DESCRIPTION: RAD - Chest Single View - 05/13/2021 9:59 am CLINICAL HISTORY: DYSPNEA COMPARISON: No comparisons FINDINGS: Lines: None. Lungs: No evidence of edema or pneumonia. There are some scattered areas of increased lung markings w hich are nonspecific and may be chronic. Pleural: No significant pleural effusions or pneumothorax. Cardiac: The heart size is within normal limits. Bones: No acute fractures. Other: IMPRESSION: No acute cardiopulmonary disease.
[2021-05-13 10:20] LABS: Absolute Lymphocytes (CBC) 0.9 K/uL (0.7-4.9); Basophils % 0.1 % (0-1.3); Hematocrit 39.7 % (36.0-45.0); Lymphocytes % 28.7 % (15.3-44.8); MPV 8.8 fL (7.6-11.3); RBC Red Blood Cell Count 4.17 M/uL (3.86-4.86)
[2021-05-13 10:24] LABS: Protime INR 0.98
[2021-05-13 11:51] LABS: ALT/SGPT 25 U/L (12-78); AST/SGOT 43 U/L (15-37); Albumin 2.6 g/dL (3.4-5.0); Alkaline Phosphatase 31 U/L (45-117); BUN Blood Urea Nitrogen 15 mg/dL (7-18); Bicarbonate 28 mmol/L (21-32); Bilirubin Direct 0.1 mg/dL (0-0.2); Bilirubin Total 0.4 mg/dL (0.2-1.0); Glucose Level 84 mg/dL (74-106); Lipase 99 U/L (73-393); Potassium 3.2 mmol/L (3.5-5.1); Protein, Total 6.2 g/dL (6.4-8.2); Sodium Level 139 mmol/L (136-145); Troponin (Emerg Dept Use Only) 0.11 ng/mL (0.0-0.045)
--- NOTE | 2021-05-13 12:11 | RAD REPORT ---
EXAM DESCRIPTION: CT - Chest For Pe Angio - 05/13/2021 11:54 am CLINICAL HISTORY: DYSPNEA COMPARISON: MRA Neck W/Wo Cont dated 11/08/2019; Carotid Artery Bilateral dated 11/07/2019; Chest Single View dated 05/13/2021 FINDINGS: Chest Wall: No suspicious thyroid nodules or pathologic lymphadenopathy. Lungs: Mild scattered bilateral ground-glass opacities which are more highly concentrated in lung bas es. Pleura: No significant effusions or pneumothorax. Mediastinum/norbert: No pathologic lymphadenopathy. Pulmonary arteries/Aorta: No filling defect identified. No aortic aneurysm. Heart: No significant pericardial effusion. Normal heart size. Upper abdomen: Low-density lesion left hepatic lobe. Measuring 3 cm which has benign imaging features . Bones: No acute abnormality. IMPRESSION: Negative for pulmonary embolism. Mild multifocal airspace disease concerning for Covid-1 9 pneumonia.
--- NOTE | 2021-05-13 13:04 | ER ---
Nurse's Notes [facility] Name: Jannette Ortiz Age: 75 yrs Sex: Female : 1945 Arrival Date: 05/13/2021 Time: 08:51 Bed 19 Private MD: Diagnosis: Coronavirus infection, unspecified;Elevated Troponin Presentation: 05/13 09:08 Chief complaint: Patient states: Covid positive, symptoms started 05/05. Got Regeron ll1 infusion Wednesday. Has felt worse since. + SOB at times, chest burning at times, ERIC sometimes. Dr Lea PCP. is also sick with covid. Coronavirus screen: Client denies travel out of the [place] in the last 14 days. cough unrelated to allergies, difficulty breathing, fever, headache, shortness of breath, Client presents with at least one sign or symptom that may indicate coronavirus-19. Standard/surgical mask placed on the client. Ebola Screen: Patient denies travel to an Ebola-affected area in the 21 days before illness onset. Initial Sepsis Screen: Does the patient meet any 2 criteria? No. Patient's initial sepsis screen is negative. Does the patient have a suspected source of infection? Yes: Productive cough/pneumonia. Risk Assessment: Do you want to hurt yourself or someone else? Patient reports no desire to harm self or others. Onset of symptoms was May 05, 2021. 09:08 Method Of Arrival: Ambulatory ll1 09:08 Acuity: CATARINA 3 ll1 Historical: - Allergies: 09:11 Codeine; ll1 09:11 sulfamethoxazole-trimethoprim; ll1 - PMHx: 09:11 stroke; ll1 - PSHx: 09:11 R ovary and tube removed; tubal ligation; skin CA removed L hill; ll1 - Immunization history:: Client reports having NOT received the Covid vaccine. Flu vaccine is not up to date. Client reports having NOT received the Covid vaccine. - Social history:: Smoking status: Patient denies any tobacco usage or history of. Screenin:15 Abuse screen: Denies threats or abuse. Denies injuries from another. Nutritional ch5 screening: No deficits noted. Tuberculosis screening: No symptoms or risk factors identified. Fall Risk None identified. Assessment: 09:15 Reassessment: Patient appears in no apparent distress at this time. Pain: Complains of ch5 pain in face. Cardiovascular: No deficits noted. Respiratory: Airway is patent Respiratory effort is even, Breath sounds are diminished. 21:08 Reassessment:. ms4 Vital Signs: 09:08 BP 95 / 58; Pulse 76; Resp 17; Temp 97.7(O); Pulse Ox 94% on R/A; Weight 55.34 kg; ll1 Height 5 ft. 1 in. (154.94 cm); Pain 0/10; 09:15 BP 137 / 62; Pulse 67; Resp 20; Pulse Ox 93% on R/A; Weight 57.61 kg; Height 5 ft. 1 ch5 in. (154.94 cm); Pain 2/10; 12:26 BP 145 / 51; Pulse 66; Resp 20; Pulse Ox 94% on R/A; Pain 0/10; ch5 14:36 BP 131 / 66; Pulse 68; Resp 18; Pulse Ox 94% on R/A; Pain 0/10; ch5 09:15 Body Mass Index 24.00 (57.61 kg, 154.94 cm) ch5 ED Course: 08:51 Patient arrived in ED. ja2 09:11 Triage completed. ll1 09:13 Arm band placed on Patient placed in an exam room, on a stretcher. ll1 09:15 Dangelo Mccray, RN is Primary Nurse. ch5 09:15 Bed in low position. Call light in reach. Side rails up X 1. ch5 09:15 No provider procedures requiring assistance completed. ch5 09:29 Eveline Olivera FNP-C is [facility]. kb 09:29 Tom Graves MD is Attending Physician. kb 09:55 Inserted saline lock: 20 gauge in right antecubital area, using aseptic technique. ch5 09:58 CXR XRAY In Process Unspecified. EDMS 10:46 BMP Sent. ch5 10:46 C-Reactive Protein Sent. ch5 10:46 CBC with Diff Sent. ch5 10:46 D-Dimer Sent. ch5 10:46 Ferritin Sent. ch5 11:54 CT Chest For PE Angio In Process Unspecified. EDMS 13:03 Christiano Lea MD is Hospitalizing Provider. kb Administered Medications: 14:35 Drug: Potassium Chloride 40 mEq Route: PO; ch5 14:36 Drug: Aspirin 81 mg Route: PO; ch5 14:36 Drug: Lovenox (enoxaparin) 1 mg/kg Route: Sub-Q; Site: left upper abdomen; ch5 Outcome: 13:03 Decision to Hospitalize by Provider. kb 22:08 Patient left the ED. ms4 Signatures: Dispatcher [employer] EDMS Eveline Olivera, Cosme Veronica RN RN ll1 Mary Lou Loomis RN RN ms4 Dangelo Mccray RN RN ch5 Erica Moy Corrections: (The following items were deleted from the chart) 09:13 09:13 Arm band placed on Patient notified of wait time ll1 ll1
--- NOTE | 2021-05-13 13:04 | EDPHYS ---
Physician Documentation [facility] Name: Jannette Ortiz Age: 75 yrs Sex: Female : 1945 Arrival Date: 05/13/2021 Time: 08:51 Bed 19 Private MD: ED Physician Tom Graves HPI: 05/13 12:04 This 75 yrs old Female presents to ER via Ambulatory with complaints of kb Shortness Of Breath, COVID+, Chest Tightness. 13:41 The patient or guardian reports cough, that is intermittent, described as moderate, kb difficulty breathing, flu symptoms, low-grade fever, myalgias. Onset: The symptoms/episode began/occurred 7 day(s) ago. Severity of symptoms: At their worst the symptoms were moderate, in the emergency department the symptoms are unchanged. Modifying factors: The symptoms are alleviated by nothing, the symptoms are aggravated by nothing. Associated signs and symptoms: Pertinent positives: chest pain, fever, rhinorrhea. The patient has not experienced similar symptoms in the past. The patient has not recently seen a physician. Pt reports she is on day 7 of COVID. States she had regeneron on Wednesday and is still having symptoms so she came in. Historical: - Allergies: 09:11 Codeine; ll1 09:11 sulfamethoxazole-trimethoprim; ll1 - PMHx: 09:11 stroke; ll1 - PSHx: 09:11 R ovary and tube removed; tubal ligation; skin CA removed L hill; ll1 - Immunization history:: Client reports having NOT received the Covid vaccine. Flu vaccine is not up to date. Client reports having NOT received the Covid vaccine. - Social history:: Smoking status: Patient denies any tobacco usage or history of. ROS: 12:03 Abdomen/GI: Negative for abdominal pain, nausea, vomiting, diarrhea, and constipation. kb 12:03 Constitutional: Positive for malaise. 12:03 ENT: Positive for sinus congestion. 12:03 Cardiovascular: Positive for chest pain, Negative for edema, orthopnea, palpitations, paroxysmal nocturnal dyspnea. 12:03 Respiratory: Positive for cough, shortness of breath, Negative for dyspnea on exertion, hemoptysis, orthopnea, pleurisy, sputum production, wheezing. 12:03 All other systems are negative. Exam: 11:05 ECG was reviewed by the Attending Physician. kb 12:03 Constitutional: This is a well developed, well nourished patient who is awake, alert, kb and in no acute distress. Head/Face: Normocephalic, atraumatic. ENT: Moist Mucous membranes Cardiovascular: Regular rate and rhythm with a normal S1 and S2. No gallops, murmurs, or rubs. No pulse deficits. Respiratory: Respirations even and unlabored. No increased work of breathing, no retractions or nasal flaring. Abdomen/GI: Soft, non-tender. No distention Skin: Warm, dry with normal turgor. Normal color. MS/ Extremity: Pulses equal, no cyanosis. Neurovascular intact. Full, normal range of motion. Neuro: Awake and alert, GCS 15, oriented to person, place, time, and situation. Moves all extremities. Normal gait. Psych: Awake, alert, with orientation to person, place and time. Behavior, mood, and affect are within normal limits. Vital Signs: 09:08 BP 95 / 58; Pulse 76; Resp 17; Temp 97.7(O); Pulse Ox 94% on R/A; Weight 55.34 kg; ll1 Height 5 ft. 1 in. (154.94 cm); Pain 0/10; 09:15 BP 137 / 62; Pulse 67; Resp 20; Pulse Ox 93% on R/A; Weight 57.61 kg; Height 5 ft. 1 ch5 in. (154.94 cm); Pain 2/10; 12:26 BP 145 / 51; Pulse 66; Resp 20; Pulse Ox 94% on R/A; Pain 0/10; ch5 14:36 BP 131 / 66; Pulse 68; Resp 18; Pulse Ox 94% on R/A; Pain 0/10; ch5 09:15 Body Mass Index 24.00 (57.61 kg, 154.94 cm) ch5 MDM: 09:30 Patient medically screened. kb 11:05 Data reviewed: vital signs, nurses notes. Data interpreted: Pulse oximetry: on room air kb is 93 %. Interpretation: normal. 12:27 Counseling: I had a detailed discussion with the patient and/or guardian regarding: the kb historical points, exam findings, and any diagnostic results supporting the discharge/admit diagnosis, lab results, radiology results, the need for further work-up and treatment in the hospital. Physician consultation: A Leonora CARVALHO was contacted at 12:28, regarding admission, to the telemetry unit. patient's condition, and will see patient in inpatient room. 05/13 09:31 Order name: BMP kb 05/13 09:31 Order name: C-Reactive Protein kb 05/13 09:31 Order name: CBC with Diff kb 05/13 09:31 Order name: D-Dimer kb 05/13 09:31 Order name: Ferritin kb 05/13 09:31 Order name: LFT's; Complete Time: 11:54 kb 05/13 09:31 Order name: Lactate; Complete Time: 11:26 kb 05/13 09:31 Order name: Lipase; Complete Time: 11:54 kb 05/13 09:31 Order name: PT-INR; Complete Time: 10:34 kb 05/13 09:31 Order name: Procalcitonin; Complete Time: 11:25 kb 05/13 09:31 Order name: Ptt, Activated; Complete Time: 10:34 kb 05/13 09:31 Order name: Troponin (emerg Dept Use Only); Complete Time: 11:54 kb 05/13 09:31 Order name: Basic Metabolic Panel; Complete Time: 11:54 EDMS 05/13 09:31 Order name: C-Reactive Protein; Complete Time: 11:54 EDMS 05/13 09:31 Order name: CXR XRAY; Complete Time: 10:10 kb 05/13 09:31 Order name: EKG; Complete Time: 09:32 kb 05/13 09:31 Order name: Cardiac monitoring; Complete Time: 10:46 kb 05/13 09:31 Order name: Droplet/Contact Precautions; Complete Time: 10:46 kb 05/13 09:31 Order name: EKG - Nurse/Tech; Complete Time: 10:46 kb 05/13 09:31 Order name: IV Start; Complete Time: 10:46 kb 05/13 09:31 Order name: CBC with Automated Diff; Complete Time: 10:34 EDMS 05/13 09:31 Order name: D-Dimer; Complete Time: 10:34 EDMS 05/13 09:31 Order name: Ferritin; Complete Time: 11:54 EDMS 05/13 10:35 Order name: CT Chest For PE Angio; Complete Time: 12:24 kb 05/13 13:41 Order name: Diet Heart Healthy; Complete Time: 13:42 kb 05/13 18:09 Order name: Troponin I [facility] 05/13 20:15 Order name: Troponin I [facility] 05/13 09:31 Order name: Labs collected and sent; Complete Time: 10:46 kb 05/13 09:31 Order name: O2 Per Protocol; Complete Time: 10:46 kb 05/13 09:31 Order name: O2 Sat Monitoring; Complete Time: 10:46 kb EC:05 Rate is 63 beats/min. Rhythm is regular. QRS [place] is Normal. DE interval is normal at kb 140 msec. QRS interval is normal at 74 msec. QT interval is normal at 414 msec. Administered Medications: 14:35 Drug: Potassium Chloride 40 mEq Route: PO; ch5 14:36 Drug: Aspirin 81 mg Route: PO; ch5 14:36 Drug: Lovenox (enoxaparin) 1 mg/kg Route: Sub-Q; Site: left upper abdomen; ch5 Disposition: 05/14 08:11 Co-signature as Attending Physician, Tom Graves MD I agree with the assessment and frandy plan of care. Disposition Summary: 05/13/21 13:03 Hospitalization Ordered Hospitalization Status: Observation kb Provider: Christiano Lea Condition: Stable kb Problem: new kb Symptoms: are unchanged kb Bed/Room Type: Standard Location: Telemetry/MedSurg (observation)(05/13/21 21:01) Room Assignment: 425(05/13/21 21:01) Diagnosis - Coronavirus infection, unspecified kb - Elevated Troponin kb Forms: - Medication Reconciliation Form kb - SBAR form kb Signatures: Dispatcher [employer] [facility] Eveline Olivera FNP-C FNP-Ivis Leiva Corey, MD MD cha Garcia, Cindy RN RN Cosme Tobin RN RN ll1 Dangelo Mccray RN RN ch5 Corrections: (The following items were deleted from the chart) 05/13 12:28 11:05 Counseling: I had a detailed discussion with the patient and/or guardian kb regarding: the historical points, exam findings, and any diagnostic results supporting the discharge/admit diagnosis, lab results, radiology results, the need for outpatient follow up, a family practitioner, to return to the emergency department if symptoms worsen or persist or if there are any questions or concerns that arise at home, kb : 13:03 Telemetry/MedSurg (observation) kb bd 17: 13:03 kb bd : 17:19 [facility] ER HOLD bd cg : 17:19 ERHOLD- bd cg
[2021-05-13] MEDS ORDERED: ASPIRIN EC 81 MG TAB PO ONE (14:50)
[2021-05-13] MEDS ORDERED: ENOXAPARIN 60 MG/0.6 ML SQ ONE (14:50)
[2021-05-13] MEDS ORDERED: POTASSIUM CL SA 10 MEQ TAB PO ONE (14:50)
[2021-05-13 16:24] VITALS: BMI 23.2
--- NOTE | 2021-05-13 22:31 | HP ---
Date of Admission: 05/13/2021 Chief Complaint: Chest pain, fever, cough. History Of Present Illness: This is a 75-year-old pleasant female patient who got diagnosed as having COVID-19 infection and her test was done on 05/07/2021. She started to have cough and generalized body ache at that time. The patient was started on azithromycin, prednisone, and Ivermectin and she was improving. She was also asked to go ahead and get monoclonal antibody infusion, but she was reluctant to do so and informed me that she will think about it and if she decides to do so, then she will go ahead and get the infusion and sites where she can go for such treatment explained to her. Day before yesterday which is on 05/11/2021, the patient decided to go to [facility] for monoclonal antibody treatment and she did receive that because her symptoms were getting worse. She is having low-grade fever, cough, not coughing up any mucus and describing as having chest pain like burning type of sensation across her chest. With worsening of symptoms, she came into emergency room today along with her . After she was evaluated in ER, she was admitted to the hospital with abnormal cardiac enzymes. I saw her in the emergency room this evening. Allergies: TO CODEINE, BACTRIM, AND ATORVASTATIN. Medications: She takes azelastine and fluticasone nasal spray, folic acid, and rosuvastatin 5 mg daily at bedtime. Review of Systems: Cardiovascular: As mentioned above. Respiratory: As mentioned above. Constitutional: As mentioned above. All other systems reviewed and negative. Past Medical History: Significant for multinodular goiter for which she had a negative thyroid biopsy in June 2020, hypoglycemia, hyperlipidemia, diverticulosis, leukocytopenia. 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 Family History: Father , had lung cancer and emphysema. Mother , had coronary artery disease. Social History: Negative for smoking and alcohol use. Physical Examination: Vital Signs: Temperature 98.2, pulse 63, respiratory rate 18, blood pressure 125/48, oxygen saturation 95% on room air. Height 5 feet 2 inches, weight 124 pounds. General: Awake, alert, oriented, not in distress. HEENT: Head atraumatic, normocephalic. Conjunctivae nonerythematous. Sclerae white. Mouth, no thrush or edema noted. Ears/Nose, no mass, lesion, discharge noted. Neck: Supple. No JVD, lymph nodes, bruit, thyromegaly noted. Lungs: Bilateral good equal air entry. Clear to auscultation. No rhonchi. No rales. Heart: Normal heart sounds, no murmur or gallop. Abdomen: Soft, bowel sounds normal. No guarding, rigidity, tenderness, mass, hepatosplenomegaly, distention, or bruit noted. Extremities: No leg edema. No calf tenderness. Skin: No rash, ulcer, cellulitis. Lymphatics: No lymph node enlargement in neck, supraclavicular, infraclavicular region. Neuro: No focal neurological deficit. Chest: Unremarkable. External Genitalia: Deferred. Rectal: Deferred. Laboratory Data: Chest x-ray, no acute cardiopulmonary changes. CAT scan of the chest per PE protocol was negative for any pulmonary embolism, mild multifocal airspace disease concerning for COVID pneumonia. Sodium 139, potassium 3.2, chloride 105, bicarb 28, BUN 15, creatinine 0.47, glucose 84. Ferritin level 1039. AST 43, ALT 25, alkaline phosphatase 31. Initial troponin 0.11, second troponin 0.21, third troponin 0.20. CRP 47.80. Procalcitonin less than 0.05. White count 3, hemoglobin 13.4, platelets 156. Impression: 1. COVID-19 infection. 2. COVID-19 pneumonia. 3. Hypokalemia. 4. Abnormal cardiac enzymes. 5. Hyperlipidemia. 6. Diverticulosis. 7. Leukocytopenia. Plan: We will admit the patient to hospital for further evaluation and management of this problem. We will get serial cardiac enzymes on patient. Consult Dr. Soriano from Cardiology Service. We will go ahead and start her on aspirin and Lovenox per order. The patient's room air oxygenation is adequate at this point. No need for further intervention and I will see her tomorrow for followup. Details and plan of treatment discussed with her. Depending on gasoline tractor operator's recommendation, we will decide if we can possibly discharge her to go home tomorrow or not and she should have elective stress test on outpatient basis with gasoline tractor operator at his office. JOSE/MODL Voice ID: [id number] CHENG
[2021-05-13] MEDS: ENOXAPARIN 60 MG/0.6 ML SQ SCH (23:28)
[2021-05-14 04:16] LABS: Absolute Lymphocytes (CBC) 1.2 K/uL (0.7-4.9); Basophils % 0.2 % (0-1.3); Hematocrit 41.8 % (36.0-45.0); Lymphocytes % 41.7 % (15.3-44.8); MPV 8.6 fL (7.6-11.3); RBC Red Blood Cell Count 4.38 M/uL (3.86-4.86)
[2021-05-14 05:26] LABS: BUN Blood Urea Nitrogen 14 mg/dL (7-18); Bicarbonate 31 mmol/L (21-32); Glucose Level 83 mg/dL (74-106); Sodium Level 142 mmol/L (136-145)
[2021-05-14] MEDS: ASPIRIN EC 81 MG TAB PO SCH ×2 (08:48→12:13)
[2021-05-14] MEDS ORDERED: AZITHROMYCIN IV 500 MG in NA CHLORIDE 0.9% 250 ML IVPB ONE (10:43)
--- NOTE | 2021-05-14 11:30 | EKG ---
Test Date: 2021-05-13 Test Time: 10:49:02 Skin Lifter Bacon: KEVIN MEASUREMENT RESULTS: Intervals: Rate: 63 WA: 140 QRSD: 74 QT: 414 QTc: 423 [place]: P: 63 WA: 140 QRS: 53 T: 38 INTERPRETIVE STATEMENTS: Normal sinus rhythm Anterior infarct, age undetermined Abnormal ECG Compared to ECG 11/08/2019 12:34:21 Myocardial infarct finding now present Electronically Signed On 05-14-21 11:27:02 CDT by Sameer Soriano
[2021-05-14] MEDS ORDERED: ENSURE ENLIVE 237 ML CAN PO PRN (11:51)
[2021-05-14] MEDS: METHYLPREDNISOLONE 40 MG INJ IV SCH ×2 (12:12→20:31)
[2021-05-14] MEDS: ENOXAPARIN 60 MG/0.6 ML SQ SCH ×2 (12:12→20:30)
--- NOTE | 2021-05-14 13:11 | ECHO ---
HEIGHT: 5 ft 2 in WEIGHT: 124 lb 12.859 oz DATE OF STUDY: 05/14/[address]: Sameer Soriano MD 2-DIMENSIONAL: YES M.MODE: YES DOPPLER: YES COLOR FLOW: YES TDS: NO PORTABLE: NO DEFINITY: NO BUBBLE STUDY: NO DIAGNOSIS: CHEST PAIN CARDIAC HISTORY: CATHERIZATION: SURGERY: PROSTHETIC VALVE: PACEMAKER: MEASUREMENTS (cm) DIASTOLIC (NORMALS) SYSTOLIC (NORMALS) IVSd 0.9 (0.6-1.2) LA Diam 2.9 (1.9-4.0) LVEF 59% LVIDd 3.4 (3.5-5.7) LVIDs 2.4 (2.0-3.5) %FS 30% LVPWd 0.9 (0.6-1.2) Ao Diam 2.4 (2.0-3.7) 2 DIMENSIONAL ASSESSMENT: RIGHT ATRIUM: NORMAL LEFT ATRIUM: NORMAL RIGHT VENTRICLE: NORMAL LEFT VENTRICLE: NORMAL TRICUSPID VALVE: NORMAL MITRAL VALVE: NORMAL PULMONIC VALVE: NORMAL AORTIC VALVE: NORMAL PERICARDIAL EFFUSION: NONE AORTIC ROOT: NORMAL LEFT VENTRICULAR WALL MOTION: NORMAL DOPPLER/COLOR FLOW: NORMAL COMMENTS: NORMAL 2D ECHOCARDIOGRAM WITH DOPPLER. NO WALL MOTION ABNORMALITY. NO EFFUSION. TECHNOLOGIST: Yanna VIGIL
--- NOTE | 2021-05-14 21:46 | PN ---
Date of Progress Note: 05/14/2021 Subjective: Patient was seen this morning for followup. Patient reported that she is feeling a lot worse compared to yesterday. She feels very weak and exhausted and reported that she is not even abl e to get out of the bed to go to the bathroom without any assistance. Objective: Vital Signs: Reviewed. HEENT: Examination unremarkable. Lungs: Clear to auscultation. Heart: Sounds normal. Abdomen: Soft, bowel sounds normal. No guarding, rigidity, tenderness, or distention. Extremities: No leg edema. Laboratory Data: White count 2.9, hemoglobin 13.8, platelets 161, sodium 142, potassium 4, chloride 107, bicarb 31, BUN 14, creatinine 0.45, glucose 83. First troponin was 0.11 and second troponin was 0.21. Impression: 1.Coronavirus disease 2019 infection. 2.Coronavirus disease 2019 pneumonia. 3.Abnormal cardiac enzymes. 4.Debility. 5.Generalized weakness. Plan: We will go ahead and start the patient on IV steroid and IV antibiotics per order. Continue a nticoagulation therapy per order. We will follow up with dairy grazer. Details were discussed with Dr. Soriano and we will get echo with Doppler today. I will see her tomorrow morning for followup. Details of plan of treatment discussed with patient. JOSE/MODL Voice ID: [id number] Report ID: [id number]
[2021-05-15 05:33] LABS: Absolute Lymphocytes (CBC) 0.7 K/uL (0.7-4.9); Basophils % 0.2 % (0-1.3); Hematocrit 40.4 % (36.0-45.0); Lymphocytes % 28.5 % (15.3-44.8); MPV 8.2 fL (7.6-11.3); RBC Red Blood Cell Count 4.24 M/uL (3.86-4.86)
[2021-05-15 05:45] LABS: ALT/SGPT 22 U/L (12-78); AST/SGOT 28 U/L (15-37); Albumin 2.6 g/dL (3.4-5.0); Alkaline Phosphatase 31 U/L (45-117); BUN Blood Urea Nitrogen 16 mg/dL (7-18); Bicarbonate 27 mmol/L (21-32); Bilirubin Total 0.4 mg/dL (0.2-1.0); Glucose Level 162 mg/dL (74-106); Magnesium 2.2 mg/dL (1.8-2.4); Protein, Total 6.2 g/dL (6.4-8.2); Sodium Level 141 mmol/L (136-145); Troponin I 0.06 ng/mL (0.0-0.045)
[2021-05-15] MEDS: ASPIRIN EC 81 MG TAB PO SCH (08:08)
[2021-05-15] MEDS: METHYLPREDNISOLONE 40 MG INJ IV SCH (08:08)
[2021-05-15] MEDS ORDERED: APIXABAN 2.5 MG TABLET PO SCH (09:00)
[2021-05-15] MEDS ORDERED: AZITHROMYCIN IV 250 MG in NA CHLORIDE 0.9% 250 ML IVPB SCH (09:00)
--- NOTE | 2021-05-15 11:16 | RAD REPORT ---
EXAM DESCRIPTION: RAD - Chest Single View - 05/15/2021 6:16 am CLINICAL HISTORY: The patient is 75 years old and is Female; COVID TECHNIQUE: Frontal view of the chest. COMPARISON: No relevant prior studies available. FINDINGS: Lungs: Bilateral patchy airspace opacities, left greater than right. Pleural space: Unremarkable. No pneumothorax. Heart: Unremarkable. Mediastinum: Unremarkable. Bones/joints: Unremarkable. IMPRESSION: Bilateral patchy airspace opacities, left greater than right. Electronically signed by: Mumtaz Dacosta MD 05/15/2021 7:33 AM CDT Due to temporary technical issues with the PACS/Fluency reporting system, reports are being signed by the in house radiologist without review as a courtesy to ensure prompt reporting. The interpreting r adiologist is fully responsible for the content of the report.
[2021-05-15 11:35] VITALS: O2SAT 94
[2021-05-15 12:49] VITALS: BP 124/57; TEMP 97.2
--- NOTE | 2021-05-16 06:19 | DS ---
Date of Discharge: 05/15/2021 Disposition: Discharged to go home. Physical Examination: HEENT: Unremarkable. Lungs: Clear to auscultation. Heart: Sounds normal. Abdomen: Soft, bowel sounds normal. No guarding, rigidity, tenderness, or distention. Extremities: No leg edema. Laboratory Data: Upon admission, white count 3, hemoglobin 13.4, platelets 156. Today, white count 2.5, hemoglobin 13.3, platelets 196. Sodium today 141, potassium 4, chloride 110, bicarb 27, BUN 16, creatinine 0.41, glucose 162. Liver function tests unremarkable. CRP 10.10. Final Diagnoses: 1. COVID-19 infection. 2. COVID-19 pneumonia. 3. Hypokalemia. 4. Abnormal cardiac enzymes. 5. Hyperlipidemia. 6. Diverticulosis. 7. Leukocytopenia. 8. Debility. 9. Generalized weakness. Hospital Course: A 75-year-old female patient admitted to the hospital after she presented to emergency room. Please see dictated H and P for more information. The patient was recently diagnosed as having COVID-19 infection. She is not vaccinated. She received Ivermectin, Zithromax, and prednisone on outpatient basis. With worsening symptoms she came to emergency room and after she was evaluated in the ER, she was admitted to the hospital. Her troponin was slightly elevated and that remained more or less stable and there was no steady increase on the troponin level. Cardiology consultation was requested from Dr. Soriano. We do not believe that the patient had any evidence of myocardial infarction, but we believe that this is more like a demand ischemia from this acute illness and Dr. Soriano agreed with that. Echocardiogram was done during this hospitalization, came back unremarkable. The patient will need elective outpatient stress test with Dr. Soriano in near future on an outpatient basis. Meanwhile, while in the hospital, her condition remained stable. She had significant generalized weakness, which actually has improved. She was given IV steroids and her CAT scan had shown mild bilateral infiltrate consistent with COVID pneumonia. Her oxygenation was normal, and she did not require any oxygen supplemental therapy. Overall condition has improved today, and she was discharged to go home in stable condition. Discharge Medications And Instructions: 1. Continue all prior home medications. 2. Take Eliquis 2.5 mg take 1 tablet by mouth 2 times a day for 1 month. 3. Azithromycin 250 mg take 1 tablet by mouth daily for 1 week, take it with food. 4. Prednisone 10 mg, the patient to take 2 tablets by mouth 2 times a day for 4 days, then 2 tablets by mouth daily for 4 days, then 1 tablet by mouth daily for 4 days, then 1/2 tablet by mouth daily for 4 days, then stop, take it with food. 5. Followup with Dr. Lea via tele visit on Wednesday which is 05/18/2021. JOSE/SANDRA Voice ID: [id number] Report ID: [id number] [id number]
== END 2021-05-15 13:40 | disposition home or self-care (01) | DRG 177 ==
LOC: ER 08:38 → ERHOLD 14:35 → 4TH 21:20 → OBSVTOIN 05-14 10:48
PROVIDERS: ADMIT Internal Medicine; ATTEND Internal Medicine
DX: U07.1 COVID-19 (principal); J12.82 Pneumonia due to coronavirus disease 2019; I24.8 Other forms of acute ischemic heart disease; E87.6 Hypokalemia; E78.5 Hyperlipidemia, unspecified; K57.90 Diverticulosis of intestine, part unspecified, without perforation or abscess without bleeding; D72.819 Decreased white blood cell count, unspecified; R53.81 Other malaise; R53.1 Weakness
CPT/HCPCS: 36415; 71045; 71275; 80048; 80053; 80076; 82728; 82947; 83605; 83690; 83735; 84145; 84484; 85025; 85379; 85610; 85730; 86140; 93005; 93306; 96372; 99284; G0378; J0456; J1650; J2920; J7050; Q9967